=== PATIENT | female | born 1970 | race African-American/Black ===

== ENCOUNTER → 2017-07-19 | Outpatient (CLI) | payer BC | LOC: MMGTC 15:57 | PROVIDERS: ATTEND Family Medicine | DX: R31.9 Hematuria, unspecified (principal) | CPT/HCPCS: 87086 ==

== ENCOUNTER → 2017-08-01 | Outpatient (CLI) | payer BC | LOC: MMGSC 14:08 | PROVIDERS: ATTEND Family Medicine | DX: N39.0 Urinary tract infection, site not specified (principal) | CPT/HCPCS: 87086 ==

== ENCOUNTER → 2017-08-31 | Outpatient (CLI) | payer BC ==
[2017-08-31 19:49] LABS: Basophils % (A) 1 %; CH 30.3; CHCM 34.4; Eosinophils # (A) 0.1 k/uL (0-0.7); Eosinophils % (A) 1 %; HCT 42.4 % (34.0-46.0); HDW 2.94; HGB 14.7 gm/dL (11.4-16.0); Luc # (Auto) 0.13; Luc % (Auto) 2; Lymphocytes # (A) 2.4 k/uL (1.0-4.8); Lymphocytes % (A) 30 %; MCH 30.7 pg (25.0-35.0); MCHC 34.6 g/dL (31.0-37.0); MCV 88.7 fL (80.0-100.0); Mean Platelet Volume 8.3; Monocytes # (A) 0.3 k/uL (0-1.0); Monocytes % (A) 4 %; Neutrophils # (A) 4.8 k/uL (1.3-7.7); Neutrophils % (A) 62 %; RBC 4.77 m/uL (3.80-5.40); RDW 14.1 % (11.5-15.5); WBC 7.7 k/uL (3.8-10.6); WBC (Perox) 7.72
[2017-08-31 20:37] LABS: ALT 31 U/L (9-52); AST 21 U/L (14-36); Alkaline Phosphatase 69 U/L (38-126); Anion Gap 10 mmol/L; Blood Urea Nitrogen 10 mg/dL (7-17); Calcium 10.2 mg/dL (8.4-10.2); Carbon Dioxide 27 mmol/L (22-30); Chloride 104 mmol/L (98-107); Glucose 95 mg/dL (74-99); Non-African American GFR(MDRD) >60 (>60 ml/min/1.73 sqM); Potassium 4.2 mmol/L (3.5-5.1); Sodium 141 mmol/L (137-145); Total Bilirubin 0.6 mg/dL (0.2-1.3)
== END | disposition home or self-care (01) ==
LOC: MMGSC 16:25
PROVIDERS: ATTEND Family Medicine
DX: I10 Essential (primary) hypertension (principal)
CPT/HCPCS: 36415; 80053; 84439; 84443; 85025

== ENCOUNTER → 2021-01-05 | Outpatient (CLI) | payer BC | END | disposition home or self-care (01) | LOC: LABWHC1 16:32 | PROVIDERS: ATTEND Family Medicine | DX: Z20.822 Contact with and (suspected) exposure to COVID-19 (principal); R50.9 Fever, unspecified; M79.10 Myalgia, unspecified site; R53.83 Other fatigue | CPT/HCPCS: U0003; U0005 ==

== ENCOUNTER → 2021-02-15 | Outpatient (CLI) | payer BC | END | disposition home or self-care (01) | LOC: LABWHC1 15:52 | PROVIDERS: ATTEND Family Medicine | DX: J02.9 Acute pharyngitis, unspecified (principal); R59.9 Enlarged lymph nodes, unspecified ==

== ENCOUNTER → 2021-03-18 | Outpatient (CLI) | payer BC ==
--- NOTE | 2021-03-18 12:38 | FL ---
EXAMINATION TYPE: FL barium swallow DATE OF EXAM: 03/18/2021 CLINICAL HISTORY: 50-year-old female with dysphagia. Patient has a goiter for one month. TECHNIQUE: A double contrast esophagram is performed utilizing air and barium. A total of 60 second s of fluoroscopic time was utilized during procedure. COMPARISON: None FINDINGS: The esophagus shows normal motility and emptying into the stomach. There is a small sliding -type hiatal hernia. No evidence of esophageal stricture. No significant gastroesophageal reflux was seen during real time performance of this study. Valsalva maneuvers were also performed. No gastroeso phageal reflux was seen. Contrast flows to the stomach and proximal small bowel without delay. IMPRESSION: 1. No evidence of gastroesophageal reflux, spontaneous or with Valsalva maneuvers. 2. Small sliding-type hiatal hernia.
--- NOTE | 2021-03-18 14:08 | US ---
EXAMINATION TYPE: US thyroid st tissue head/neck DATE OF EXAM: 03/18/2021 COMPARISON: NONE CLINICAL HISTORY: E04.1 Thyroid Nodule, R13.10 Dysphagia. GLAND SIZE: Right Lobe: 6.4 x 3.6 x 3.2 cm Overall Parenchyma: heterogenous Left Lobe: 6.2 x 3.4 x 3.8 cm Overall Parenchyma: heterogeneous Isthmus Thickness: 0.9 cm NODULES RIGHT: # of nodules measured on right: 1 1. 3.0 X 3.1 x 2.5 cm, mid mid, solid or almost completely solid, hypoechoic nodule, which is talle r than wide, with smooth margins, without echogenic foci. Prior size: no previous LEFT: # of nodules measured on left: 1 1. 4.7 X 2.7 x 3.6 cm, mid mid, solid or almost completely solid, hypoechoic nodule, which is wider than tall, with smooth margins, without echogenic foci. Prior size: no previous ISTHMUS: # of nodules measured in the isthmus: 1 1. 3.3 X 2.1 x 2.7 cm solid or almost completely solid, hypoechoic nodule, which is wider than tall , with smooth margins, without echogenic foci. Prior size: no previous Bilateral neck scanned, no evidence of lymphadenopathy. Enlarged diffusely heterogeneous thyroid gland with multiple nodules. IMPRESSION: The thyroid gland parenchyma is diffusely enlarged and heterogeneous. Bilateral solid nodules are see n which are hypoechoic without echogenic foci. These are TI-RADS 4 nodules and are eligible for ultra sound-guided biopsy per criteria. 2017 ACR TI-RADS LEVEL: 4 *Highest TI-RADS level nodule reported
== END | disposition home or self-care (01) ==
LOC: RADUSWWP 09:18
PROVIDERS: ATTEND Otolaryngology
DX: K44.9 Diaphragmatic hernia without obstruction or gangrene (principal); E04.9 Nontoxic goiter, unspecified; E04.2 Nontoxic multinodular goiter
CPT/HCPCS: 74220; 76536

== ENCOUNTER 2021-03-24 13:01 | Day surgery (SDC) | payer BC ==
[2021-03-24] MEDS ORDERED: ALPRAZolam 0.5 MG TAB PO STA (13:27)
[2021-03-24 13:56] VITALS: BP 133/74; PULSE 74; RESP 18; TEMP 98.1
--- NOTE | 2021-03-24 14:52 | US ---
ULTRASOUND GUIDED FNA THYROID BIOPSY: CLINICAL HISTORY: Thyroid nodule FINDINGS: The procedure was explained to the patient. The risks, complications, benefits and alternatives were discussed and any questions were answered. Informed consent was obtained. Patient was placed supin e on the ultrasound table and prepped and draped in the usual sterile fashion. Utilizing a 25 gauge needle, five passes were made into the requested right, isthmus, and left thyroid nodule. Patient was stable throughout the procedure. Pathology is pending. All elements of maximal barrier technique were utilized. IMPRESSION: 1. Successful ultrasound guided FNA thyroid biopsy.
== END 2021-03-24 15:10 | disposition home or self-care (01) ==
LOC: RADPROMAIN 13:01
PROVIDERS: ATTEND Otolaryngology
DX: E04.1 Nontoxic single thyroid nodule (principal)
CPT/HCPCS: 10005; 10006; 88173; 88305

== ENCOUNTER 2021-06-22 06:41 | Observation (INO) | payer BC ==
[2021-06-16 09:39] VITALS: BMI 29.5
[~2021-06-22 06:41] MED LIST: ACETAMINOPHEN TAB 500 MG TAB PO PRN; DEXAMETHASONE SOD PHOSPHATE 4 MG/ML 1 ML VIAL IV ONE; HEPARIN SODIUM,PORCINE/PF 5,000 UNIT/0.5 ML SYRINGE SQ PRN; LACTATED RINGERS 1,000 ML IV SCH; ONDANSETRON 4 MG/2 ML VIAL IVP ONE; Pre Op ABX Message 1 EACH MISC MISCELLANE ONE; SCOPOLAMINE 1.5MG/72HR PATCH TRANSDERM ONE
[2021-06-22] MEDS ORDERED: MIDAZOLAM 2 MG/2 ML VIAL IV PRN (07:00)
[2021-06-22 07:24] LABS: Glucose,Whole Blood 204 mg/dL (75-99)
--- NOTE | 2021-06-22 10:20 | P.GSHP ---
History of Present Illness H&P Date: 06/22/21 Chief Complaint: Enlarged multinodular thyroid goiter This a 50-year-old female who's off a very large thyroid goiter. Patient has compressive symptoms her neck from her goiter. She presents today for subtotal thyroidectomy. Patient aware the risks surgery including injury to the recurrent laryngeal nerve, vocal hoarseness and injury to parathyroid gland. Past Medical History Past Medical History: Diabetes Mellitus, Hyperlipidemia, Hypertension Additional Past Medical History / Comment(s): goiter, has some dypshagia History of Any Multi-Drug Resistant Organisms: None Reported Past Surgical History: Hernia Repair, Hysterectomy, Tonsillectomy, Tubal Ligation Additional Past Surgical History / Comment(s): LEEP procedure Past Anesthesia/Blood Transfusion Reactions: No Reported Reaction Smoking Status: Never smoker - Past Family History Sister(s) Family Medical History: Cancer Additional Family Medical History / Comment(s): brain cancer Medications and Allergies Home Medications Medication Instructions Recorded Confirmed Type Cholecalciferol [Vitamin D3 (25 50 mcg PO DAILY 03/12/21 06/22/21 History Mcg = 1000 Iu)] Rosuvastatin [Crestor] 20 mg PO DAILY 03/12/21 06/16/21 History Valsartan/Hydrochlorothiazide 25 mg PO HS 03/12/21 06/16/21 History [Valsartan-Hctz 160-25 mg Tab] amLODIPine [Norvasc] 10 mg PO DAILY 03/12/21 06/16/21 History cloNIDine HCL [Catapres] 1 mg PO DAILY 03/12/21 06/16/21 History metFORMIN HCL [Glucophage] 500 mg PO BID 03/12/21 06/16/21 History Metoprolol Succinate (ER) [Toprol 50 mg PO HS 06/16/21 06/22/21 History Xl] Allergies Allergy/AdvReac Type Severity Reaction Status Date / Time Penicillins Allergy Rash/Hives Verified 06/22/21 07:08 Surgical - Exam Vital Signs Temp Pulse Resp BP Pulse Ox 97.4 F L 69 17 117/72 98 06/22/21 07:19 06/22/21 07:19 06/22/21 07:19 06/22/21 07:19 06/22/21 07:19 - General well developed, well nourished, no distress - Eyes PERRL - ENT normal pinna - Neck Enlarged thyroid gland with diffuse multinodular goiter. Gland appears to be very large. Results - Labs Abnormal Lab Results - Last 24 Hours (Table) 06/22/21 Range/Units 07:22 POC Glucose (mg/dL) 204 H (75-99) mg/dL Diabetes panel 06/22/21 Range/Units 07:24 Calcium 10.0 (8.4-10.2) mg/dL Calcium panel 06/22/21 Range/Units 07:24 Calcium 10.0 (8.4-10.2) mg/dL Pituitary panel 06/22/21 Range/Units 07:24 Calcium 10.0 (8.4-10.2) mg/dL Adrenal panel 06/22/21 Range/Units 07:24 Calcium 10.0 (8.4-10.2) mg/dL Assessment and Plan Assessment: Diffuse multinodular goiter. Patient will undergo subtotal thyroidectomy
[2021-06-22] MEDS ORDERED: ePHEDrine SULFATE/0.9% NACL/PF 50 MG/5 ML SYRINGE IV ONE (10:44)
[2021-06-22] MEDS ORDERED: PROPOFOL 10 MG/ML 20 ML VIAL IV ONE (10:44)
[2021-06-22] MEDS ORDERED: ROCURONIUM 10 MG/ML (5 ML VIAL) IV ONE (10:44)
[2021-06-22] MEDS ORDERED: GLYCOPYRROLATE 0.2 MG/ML 2 ML VIAL ONE (10:44)
[2021-06-22] MEDS ORDERED: SUCCINYLCHOLINE CHLORIDE 100 MG/5 ML SYR IV ONE (10:44)
[2021-06-22] MEDS ORDERED: SODIUM CHLORIDE 0.9% 100 ML BAG ONE (10:44)
[2021-06-22] MEDS ORDERED: MIDAZOLAM 2 MG/2 ML VIAL ONE (10:44)
[2021-06-22] MEDS ORDERED: fentaNYL (PF) 50 MCG/ML 2 ML AMP ONE (10:44)
[2021-06-22] MEDS ORDERED: ceFAZolin 1,000 MG VIAL ONE (10:44)
[2021-06-22] MEDS ORDERED: LIDOCAINE 1% INJ 10MG/ML (20 ML MDV) ONE (10:44)
[2021-06-22] MEDS ORDERED: LACTATED RINGERS 1,000 ML IV ONE ×2 (12:07→12:41)
[2021-06-22] MEDS ORDERED: NALOXONE 0.4 MG/ML 1 ML VIAL IV PRN (12:41)
--- NOTE | 2021-06-22 12:41 | P.OP ---
Date of Procedure: 06/22/21 Preoperative Diagnosis: Multinodular goiter Postoperative Diagnosis: Multinodular goiter Procedure(s) Performed: Subtotal thyroidectomy Anesthesia: FUAD Surgeon: David Cain Estimated Blood Loss (ml): 25 Pathology: other (Thyroid) Condition: stable Disposition: PACU Description of Procedure: The patient's placed on the operative table in supine position. She received general anesthesia. She was then placed in the beachchair position with her neck extended. Her neck was prepped and draped in sterile fashion. Standard Max incision was made approximately 2 cm above the sternal notch. Using left cautery subcutaneous tissue and platysma was divided. The strap muscles were divided midline. Thyroid gland was exposed. Gelpi retractors placed in the wound. Using Chong retractors the right thyroid gland exposed. The gland was rotated medially into the operative field. The superior thyroid vessels were ligated between 0 silk ties and divided. The lower thyroid vessels were tied with 2-0 silk ties and ligated. The middle thyroid vein was ligated with 3-0 silk ties. And ligated. Using Harmonic scissors dissection was used to dissect the thyroid off of the trachea. The recurrent laryngeal nerve was then preserved. The inferior parathyroid gland was visualized. The superior parathyroid gland could not be visualized. Next right thyroid gland was mobilized into the operative field. The superior vessels were ligated with 2-0 silk ties. The inferior vessels were ligated with 2 silk ties. The middle thyroid vein was ligated with 3-0 silk ties. Using the Harmonic scissors the thyroid gland was medically dissected off of the trachea. The left thyroid gland was tagged with a suture. The specimens of pathology. There was good hemostasis. There is no significant bleeding seen. The strap muscle reapproximated using 3-0 Vicryl suture. A PREET drain is placed in the thyroid bed and brought out through the middle of the incision prior to closing the strap muscles. Platysma closed 3-0 Vicryl. Skin was closed interrupted 3-0 Monocryl suture. Dermabond was applied. Patient top she will was sent to recovery room in stable condition.
[2021-06-22] MEDS ORDERED: ONDANSETRON 4 MG/2 ML VIAL ONE (12:48)
[2021-06-22] MEDS ORDERED: ONDANSETRON 4 MG/2 ML VIAL IVP ONE (12:51)
[2021-06-22] MEDS: HYDROmorphone 0.5 MG/0.5 ML SYRINGE IVP PRN ×3 (12:53→20:13)
[2021-06-22 13:01] LABS: Glucose,Whole Blood 167 mg/dL (75-99)
[2021-06-22] MEDS: CALCIUM CARBONATE 500 MG CHEWABLE PO SCH ×3 (14:48→20:12)
[2021-06-22] MEDS ORDERED: ACETAMINOPHEN IV (For NPO) 1,000 MG in EMPTY BAG 1 BAG IVPB ONE (15:20)
--- NOTE | 2021-06-22 15:56 | P.CONS ---
History of Present Illness - Reason for Consult Consult date: 06/22/21 irregular heart beat Requesting physician: David Cain - Chief Complaint difficulty swallowing - History of Present Illness Patient is a 50 yo AAF with a hx of goiter NT pressed TSH without formal diagnosis of hyperthyroidism and negative thyroid stimulating antibody, hypertension, dyslipidemia, and diabetes mellitus type 2 controlled with oral medications who presented to the hospital for elective thyroidectomy. We're consulted postoperatively secondary to concerns of irregular pulse. Initial EKG was done which demonstrated normal sinus rhythm. Patient seen and examined at bedside. She complains of neck pain and difficulty swallowing. She also feels slightly sleepy. She states that she came to the ER for dysphagia and difficulty swallowing when they found an enlarged thyroid. Since that time she has seen Dr. Fish and had biopsy done. She has also seen Dr. Guaman from endocrinology who plans on seeing her 6 weeks postoperatively. She has noted some weight loss of approximately 2-5 pounds, hair loss. She denies any changes in her skin, nails, diarrhea, palpitations. She denies any recent illness. She has not been on any thyroid suppression medications. Initial EKG demonstrated normal sinus rhythm at a rate of 88, NH 205, QRS 112, QTC 459. Pertinent positives and negatives as discussed in HPI, a complete review of systems was performed and all other systems are negative. General: non toxic, mild distress secondary to pain, appears at stated age Derm: warm, dry Head: atraumatic, normocephalic, symmetric Eyes: EOMI, no lid lag, anicteric sclera, pupils equal round reactive to light ENT: Nose and ears atraumatic, no thrush, no pharyngeal erythema Neck: PREET drain in a lace over anterior neck with dressings in place, no cervical lymphadenopathy Mouth: no lip lesion, mucus membranes moist Cardiovascular: Regular with grade 2, positive posterior tibial pulse bilateral, no edema, capillary refill less than 2 seconds Lungs: Decreased breath sounds bilateral, no ronchi, no rales, no wheeze, no accessory muscle use Abdominal: soft, nontender to palpation, no guarding, no appreciable organomegaly, normal bowel sounds Ext: no gross muscle atrophy, muscle strength muscle strength 5 out of 5 in all 4 extremities, no contractures Neuro: CN II-XI grossly intact, light touch intact all 4 extremities, finger to nose within normal limits, Psych: Alert, oriented, appropriate affect 50-year-old -Vincentian female status post thyroidectomy for multinodular goiter. Irregular heart rate -Telemetry -Check calcium level, magnesium, and potassium levels Hypertension, controlled -Resume home medications in a.m. if blood pressure stable Dyslipidemia -Statin therapy Diabetes mellitus type 2 -Hold metformin -Sliding-scale insulin -Postop outpatient follow-up with primary and endocrinology. Thank you for allowing us to participate in the care of this pleasant patient. Do not hesitate to contact us with questions. Someone can be reached from the [facility] hospitalist group all hours of the day at [phone] or via [email or web address]. Past Medical History Past Medical History: Diabetes Mellitus, Hyperlipidemia, Hypertension Additional Past Medical History / Comment(s): goiter, has some dypshagia History of Any Multi-Drug Resistant Organisms: None Reported Past Surgical History: Hernia Repair, Hysterectomy, Tonsillectomy, Tubal Ligation Additional Past Surgical History / Comment(s): LEEP procedure Past Anesthesia/Blood Transfusion Reactions: No Reported Reaction Past Psychological History: No Psychological Hx Reported Smoking Status: Never smoker Past Alcohol Use History: None Reported Past Drug Use History: None Reported - Past Family History Sister(s) Family Medical History: Cancer Additional Family Medical History / Comment(s): brain cancer Medications and Allergies Home Medications Medication Instructions Recorded Confirmed Type Cholecalciferol [Vitamin D3 (25 50 mcg PO DAILY 03/12/21 06/22/21 History Mcg = 1000 Iu)] Rosuvastatin [Crestor] 20 mg PO DAILY 03/12/21 06/16/21 History Valsartan/Hydrochlorothiazide 25 mg PO HS 03/12/21 06/16/21 History [Valsartan-Hctz 160-25 mg Tab] amLODIPine [Norvasc] 10 mg PO DAILY 03/12/21 06/16/21 History cloNIDine HCL [Catapres] 1 mg PO DAILY 03/12/21 06/16/21 History metFORMIN HCL [Glucophage] 500 mg PO BID 03/12/21 06/16/21 History Metoprolol Succinate (ER) [Toprol 50 mg PO HS 06/16/21 06/22/21 History Xl] Allergies Allergy/AdvReac Type Severity Reaction Status Date / Time Penicillins Allergy Rash/Hives Verified 06/22/21 14:35 Physical Exam Osteopathic Statement: *. No significant issues noted on an osteopathic structural exam other than those noted in the History and Physical/Consult. Vitals: Vital Signs Temp Pulse Resp BP Pulse Ox 06/22/21 13:25 98 16 140/82 98 06/22/21 13:10 100 16 142/80 98 06/22/21 12:55 98 16 148/88 99 06/22/21 12:40 97 16 138/67 100 06/22/21 12:28 97.8 F 101 H 16 142/88 100 06/22/21 07:19 97.4 F L 69 17 117/72 98 Intake and Output 06/22/21 06/22/21 06/22/21 06:59 14:59 22:59 Intake Total 1400 Output Total 725 400 Balance 675 -400 Intake: IV 1400 Output: Urine 700 400 Estimated Blood Loss 25 Other: Voiding Method Toilet Weight 66.1 kg Results Labs: Abnormal Lab Results - Last 24 Hours (Table) 06/22/21 06/22/21 Range/Units 07:22 13:00 POC Glucose (mg/dL) 204 H 167 H (75-99) mg/dL
[2021-06-22 16:13] LABS: Calcium 9.7 mg/dL (8.4-10.2); Magnesium 1.5 mg/dL (1.6-2.3); Potassium 2.8 mmol/L (3.5-5.1)
[2021-06-22] MEDS ORDERED: POTASSIUM CHLORIDE ER 20 MEQ TAB.ER PO STA (16:49)
[2021-06-22] MEDS: ONDANSETRON 4 MG/2 ML VIAL IVP PRN (17:04)
[2021-06-22 17:13] LABS: Glucose,Whole Blood 205 mg/dL (75-99)
[2021-06-22] MEDS: INSULIN ASPART (NovoLOG) 100 UNIT/ML VIAL SQ SCH (17:19)
[2021-06-22] MEDS: POTASSIUM CHLORIDE 10 MEQ in WATER FOR INJECTION 1 100ML.BAG IVPB SCH ×4 (17:27→21:31)
[2021-06-22 20:58] LABS: Glucose,Whole Blood 189 mg/dL (75-99)
[2021-06-22] MEDS ORDERED: hydroCHLOROthiazide 25 MG TAB PO SCH (21:00)
[2021-06-22] MEDS: VALSARTAN 160 MG TAB PO SCH (22:27)
[2021-06-22] MEDS: HYDROcodone/APAP 5-325MG 1 EACH TAB PO PRN (22:31)
[2021-06-22 23:25] LABS: African American GFR (CKD) 67 (>60 ml/min/1.73 sqM); Anion Gap 8 mmol/L; Blood Urea Nitrogen 11 mg/dL (7-17); Calcium 10.4 mg/dL (8.4-10.2); Carbon Dioxide 32 mmol/L (22-30); Chloride 93 mmol/L (98-107); Glucose 177 mg/dL (74-99); Non-African American GFR(CKD) 58 (>60 ml/min/1.73 sqM); Potassium 3.5 mmol/L (3.5-5.1); Sodium 133 mmol/L (137-145)
[2021-06-23] MEDS: HYDROmorphone 0.5 MG/0.5 ML SYRINGE IVP PRN ×4 (03:18→20:02)
[2021-06-23] MEDS: POTASSIUM CHLORIDE ER 20 MEQ TAB.ER PO SCH ×3 (04:58→08:04)
[2021-06-23 05:34] LABS: African American GFR (CKD) 61 (>60 ml/min/1.73 sqM); Anion Gap 9 mmol/L; Blood Urea Nitrogen 10 mg/dL (7-17); Calcium 11.5 mg/dL (8.4-10.2); Carbon Dioxide 33 mmol/L (22-30); Chloride 94 mmol/L (98-107); Glucose 159 mg/dL (74-99); Non-African American GFR(CKD) 53 (>60 ml/min/1.73 sqM); Potassium 3.4 mmol/L (3.5-5.1); Sodium 136 mmol/L (137-145)
[2021-06-23 07:37] LABS: Glucose,Whole Blood 160 mg/dL (75-99)
[2021-06-23] MEDS: ATORVASTATIN 40 MG TAB PO SCH (08:04)
[2021-06-23] MEDS: CALCIUM CARBONATE 500 MG CHEWABLE PO SCH ×4 (08:04→21:39)
[2021-06-23] MEDS: INSULIN ASPART (NovoLOG) 100 UNIT/ML VIAL SQ SCH ×3 (08:04→17:40)
[2021-06-23] MEDS: ENOXAPARIN 40 MG/0.4 ML SYRINGE SQ SCH (08:04)
[2021-06-23] MEDS ORDERED: cloNIDine HCL 0.1 MG TAB PO SCH (09:00)
[2021-06-23] MEDS: amLODIPine 10 MG TAB PO SCH (09:19)
[2021-06-23] MEDS: cloNIDine HCL 0.1 MG TAB PO SCH (09:20)
[2021-06-23] MEDS: LACTATED RINGERS 1,000 ML IV SCH ×2 (09:22→17:31)
[2021-06-23 09:29] LABS: African American GFR (CKD) 57 (>60 ml/min/1.73 sqM); Anion Gap 9 mmol/L; Blood Urea Nitrogen 10 mg/dL (7-17); Calcium 11.1 mg/dL (8.4-10.2); Carbon Dioxide 35 mmol/L (22-30); Chloride 93 mmol/L (98-107); Glucose 169 mg/dL (74-99); Magnesium 1.6 mg/dL (1.6-2.3); Non-African American GFR(CKD) 49 (>60 ml/min/1.73 sqM); Sodium 137 mmol/L (137-145)
[2021-06-23] MEDS ORDERED: POTASSIUM BICARBONATE/CIT AC 20 MEQ TABLET.EFF PO STA (11:10)
[2021-06-23 12:11] LABS: Glucose,Whole Blood 213 mg/dL (75-99)
[2021-06-23] MEDS ORDERED: POTASSIUM BICARBONATE/CIT AC 20 MEQ TABLET.EFF PO ONE (13:00)
[2021-06-23] MEDS: ONDANSETRON 4 MG/2 ML VIAL IVP PRN (13:41)
--- NOTE | 2021-06-23 14:31 | P.PN ---
Subjective Progress Note Date: 06/23/21 CHIEF COMPLAINT: Multinodular goiter HISTORY OF PRESENT ILLNESS: Patient is status post subtotal thyroidectomy. Postop day #1. She does report some difficulty swallowing. Denies any hoarseness. She is complaining of nausea and pain. Afebrile. Sodium 137 potassium 3.0 creatinine 1.27 magnesium 1.6 Patient seen and examined with Dr. Cain PHYSICAL EXAM: VITAL SIGNS: Reviewed. GENERAL: Well-developed in no acute distress. HEENT: No sclera icterus. Extraocular movements grossly intact. Moist buccal mucosa. Head is atraumatic, normocephalic. ABDOMEN: Soft. Nondistended. Nontender. NEUROLOGIC: Alert and oriented. Cranial nerves II through XII grossly intact. ASSESSMENT: 1. Multinodular goiter status post subtotal thyroidectomy 2. Hypokalemia and hypomagnesemia PLAN: -Replace magnesium -Potassium being replaced -Continue pain medication as needed -Continue antiemetics -Downgraded diet to full liquids -Anticipate discharge tomorrow on full liquid diet Physician Spanish Professor note has been reviewed by physician. Signing provider agrees with the documented findings, assessment, and plan of care. Objective - Vital Signs Vital signs: Vital Signs Temp 97.9 F 06/23/21 08:33 Pulse 65 06/23/21 08:33 Resp 18 06/23/21 08:33 BP 152/85 06/23/21 08:33 Pulse Ox 97 06/23/21 08:33 Intake & Output 06/22/21 06/23/21 06/23/21 18:59 06:59 18:59 Intake Total 1400 Output Total 1825 75 90 Balance -425 -75 -90 Weight 66.1 kg Intake: IV 1400 Output: Drainage 75 90 Right Neck 75 90 Urine 1800 Estimated Blood Loss 25 Other: Voiding Method Toilet # Voids 1 5 - Labs CBC & Chem 7: 06/23/21 08:43 Labs: Abnormal Lab Results - Last 24 Hours (Table) 06/22/21 06/22/21 06/22/21 Range/Units 15:47 17:12 20:58 Sodium (137-145) mmol/L Potassium 2.8 L (3.5-5.1) mmol/L Chloride 95 L (98-107) mmol/L Carbon Dioxide 32 H (22-30) mmol/L Creatinine 1.08 H (0.52-1.04) mg/dL Glucose 206 H (74-99) mg/dL POC Glucose (mg/dL) 205 H 189 H (75-99) mg/dL Calcium (8.4-10.2) mg/dL Magnesium 1.5 L (1.6-2.3) mg/dL 06/22/21 06/23/21 06/23/21 Range/Units 22:50 04:39 07:36 Sodium 133 L 136 L (137-145) mmol/L Potassium 3.4 L (3.5-5.1) mmol/L Chloride 93 L 94 L (98-107) mmol/L Carbon Dioxide 32 H 33 H (22-30) mmol/L Creatinine 1.10 H 1.20 H (0.52-1.04) mg/dL Glucose 177 H 159 H (74-99) mg/dL POC Glucose (mg/dL) 160 H (75-99) mg/dL Calcium 10.4 H 11.5 H (8.4-10.2) mg/dL Magnesium (1.6-2.3) mg/dL 06/23/21 06/23/21 Range/Units 08:43 12:10 Sodium (137-145) mmol/L Potassium 3.0 L (3.5-5.1) mmol/L Chloride 93 L (98-107) mmol/L Carbon Dioxide 35 H (22-30) mmol/L Creatinine 1.27 H (0.52-1.04) mg/dL Glucose 169 H (74-99) mg/dL POC Glucose (mg/dL) 213 H (75-99) mg/dL Calcium 11.1 H (8.4-10.2) mg/dL Magnesium (1.6-2.3) mg/dL
--- NOTE | 2021-06-23 14:43 | P.PN ---
Subjective Progress Note Date: 06/23/21 (delayed charting seen at 0855) Principal diagnosis: dysphagia Patient is a 50 yo AAF with a hx of goiter NT pressed TSH without formal diagnosis of hyperthyroidism and negative thyroid stimulating antibody, hypertension, dyslipidemia, and diabetes mellitus type 2 controlled with oral medications who presented to the hospital for elective thyroidectomy. We're consulted postoperatively secondary to concerns of irregular pulse. Initial EKG was done which demonstrated normal sinus rhythm. She was found have electrolyte disturbances of hypo-candidemia and hypomagnesemia. Those are placed and she was monitored. Telemetry showed normal sinus rhythm. Patient seen and examined at bedside. She reports that she is still having significant neck pain and dysphagia. Medications are helping. She denies any nausea, vomiting, or chest pain. General: non toxic, no distress, appears at stated age Derm: warm, dry Head: atraumatic, normocephalic, symmetric Eyes: EOMI, no lid lag, anicteric sclera, incision covered on neck with drain in place with serosanguineous fluid Mouth: no lip lesion, mucus membranes moist Cardiovascular: S1S2 reg, no murmur, positive posterior tibial pulse bilateral, Lungs: Decreased breath sounds bilateral, no rhonchi, no rales , no accessory muscle use Abdominal: soft, nontender to palpation, no guarding, no appreciable organomegaly Ext: no gross muscle atrophy, no edema, no contractures Neuro: CN II-XI grossly intact, no focal neuro deficits Psych: Alert, oriented, appropriate affect 50-year-old -Beninese female status post thyroidectomy for multinodular goiter. Outpatient TSH was significantly suppressed with normal free T4. She is following with Dr. Michelle Guaman and is due to follow with her 6 postoperatively. She was not told that she would need any post operative thyroid supplementation. Hypokalemia -Replace and recheck Hypomagnesemia, improved Hypertension, controlled -conitnue current medications 0 follow BP Dyslipidemia -Statin therapy Diabetes mellitus type 2 -Hold metformin -Sliding-scale insulin -Postop outpatient follow-up with primary and endocrinology. Active Medications Hydrocodone Bitart/Acetaminophen (Hydrocodone/Apap 5-325mg 1 Each Tab) 2 each PO Q6HR PRN PRN Reason: Moderate to Severe Pain Stop: 07/22/21 12:42 Last Admin: 06/22/21 22:31 Dose: 2 each Documented by: Amlodipine Besylate (Amlodipine 10 Mg Tab) 10 mg PO DAILY [facility] Last Admin: 06/23/21 09:19 Dose: 10 mg Documented by: Atorvastatin Calcium (Atorvastatin 40 Mg Tab) 40 mg PO DAILY [facility] Last Admin: 06/23/21 08:04 Dose: 40 mg Documented by: Calcium Carbonate/Glycine (Calcium Carbonate 500 Mg Chewable) 1,000 mg PO QID [facility] Stop: 07/22/21 13:01 Last Admin: 06/23/21 13:02 Dose: 1,000 mg Documented by: Clonidine (Clonidine Hcl 0.1 Mg Tab) 0.1 mg PO DAILY [facility] Last Admin: 06/23/21 09:20 Dose: 0.1 mg Documented by: Enoxaparin Sodium (Enoxaparin 40 Mg/0.4 Ml Syringe) 40 mg SQ DAILY [facility] Stop: 07/23/21 09:01 Last Admin: 06/23/21 08:04 Dose: 40 mg Documented by: Hydromorphone HCl (Hydromorphone 0.5 Mg/0.5 Ml Syringe) 0.5 mg IVP Q3HR PRN PRN Reason: Moderate to Severe Pain Stop: 07/22/21 12:42 Last Admin: 06/23/21 11:44 Dose: 0.5 mg Documented by: Lactated Ringer's (Lactated Ringers) 1,000 mls @ 125 mls/hr IV .Q8H [facility] Last Admin: 06/23/21 09:22 Dose: 125 mls/hr Documented by: Magnesium Sulfate/Dextrose 1 (gm/ IV Solution) 100 mls @ 100 mls/hr IVPB Q1H [facility] Stop: 06/23/21 16:29 Insulin Aspart (Insulin Aspart (Novolog) 100 Unit/Ml Vial) 0 unit SQ AC-TID [facility]; Protocol Last Admin: 06/23/21 13:02 Dose: 3 unit Documented by: Metoprolol Succinate (Metoprolol Succinate (Er) 50 Mg Tab.Er.24h) 50 mg PO HS [facility] Naloxone HCl (Naloxone 0.4 Mg/Ml 1 Ml Vial) 0.2 mg IV Q2M PRN PRN Reason: Opioid Reversal Stop: 07/22/21 12:42 Ondansetron HCl (Ondansetron 4 Mg/2 Ml Vial) 4 mg IVP Q6HR PRN PRN Reason: Nausea And Vomiting Stop: 07/22/21 12:42 Last Admin: 06/23/21 13:41 Dose: 4 mg Documented by: Valsartan (Valsartan 160 Mg Tab) 160 mg PO HS [facility] Last Admin: 06/22/21 22:27 Dose: 160 mg Documented by: Objective - Vital Signs Vital signs: Vital Signs Temp 97.9 F 06/23/21 08:33 Pulse 65 06/23/21 08:33 Resp 18 06/23/21 08:33 BP 152/85 06/23/21 08:33 Pulse Ox 97 06/23/21 08:33 Intake & Output 06/22/21 06/23/21 06/23/21 18:59 06:59 18:59 Intake Total 1400 Output Total 1825 75 90 Balance -425 -75 -90 Weight 66.1 kg Intake: IV 1400 Output: Drainage 75 90 Right Neck 75 90 Urine 1800 Estimated Blood Loss 25 Other: Voiding Method Toilet # Voids 1 5 - Labs CBC & Chem 7: 06/23/21 08:43 Labs: Abnormal Lab Results - Last 24 Hours (Table) 06/22/21 06/22/21 06/22/21 Range/Units 15:47 17:12 20:58 Sodium (137-145) mmol/L Potassium 2.8 L (3.5-5.1) mmol/L Chloride 95 L (98-107) mmol/L Carbon Dioxide 32 H (22-30) mmol/L Creatinine 1.08 H (0.52-1.04) mg/dL Glucose 206 H (74-99) mg/dL POC Glucose (mg/dL) 205 H 189 H (75-99) mg/dL Calcium (8.4-10.2) mg/dL Magnesium 1.5 L (1.6-2.3) mg/dL 06/22/21 06/23/21 06/23/21 Range/Units 22:50 04:39 07:36 Sodium 133 L 136 L (137-145) mmol/L Potassium 3.4 L (3.5-5.1) mmol/L Chloride 93 L 94 L (98-107) mmol/L Carbon Dioxide 32 H 33 H (22-30) mmol/L Creatinine 1.10 H 1.20 H (0.52-1.04) mg/dL Glucose 177 H 159 H (74-99) mg/dL POC Glucose (mg/dL) 160 H (75-99) mg/dL Calcium 10.4 H 11.5 H (8.4-10.2) mg/dL Magnesium (1.6-2.3) mg/dL 06/23/21 06/23/21 Range/Units 08:43 12:10 Sodium (137-145) mmol/L Potassium 3.0 L (3.5-5.1) mmol/L Chloride 93 L (98-107) mmol/L Carbon Dioxide 35 H (22-30) mmol/L Creatinine 1.27 H (0.52-1.04) mg/dL Glucose 169 H (74-99) mg/dL POC Glucose (mg/dL) 213 H (75-99) mg/dL Calcium 11.1 H (8.4-10.2) mg/dL Magnesium (1.6-2.3) mg/dL
[2021-06-23] MEDS: MAGNESIUM SULFATE-D5W PMX 1 GM in DEXTROSE/WATER 1 100ML.BAG IVPB SCH ×2 (16:04→20:07)
[2021-06-23 17:05] LABS: Glucose,Whole Blood 190 mg/dL (75-99)
[2021-06-23] MEDS ORDERED: METOPROLOL SUCCINATE (ER) 50 MG TAB.ER.24H PO SCH (21:00)
[2021-06-23] MEDS: VALSARTAN 160 MG TAB PO SCH (21:39)
[2021-06-23 21:53] LABS: Glucose,Whole Blood 158 mg/dL (75-99)
[2021-06-24 03:21] VITALS: RESP 16
[2021-06-24] MEDS: HYDROmorphone 0.5 MG/0.5 ML SYRINGE IVP PRN ×2 (05:38→11:49)
[2021-06-24 07:40] LABS: Glucose,Whole Blood 237 mg/dL (75-99)
[2021-06-24 08:19] VITALS: TEMP 97.8
[2021-06-24] MEDS: INSULIN ASPART (NovoLOG) 100 UNIT/ML VIAL SQ SCH ×2 (08:35→12:20)
[2021-06-24] MEDS: ATORVASTATIN 40 MG TAB PO SCH (08:35)
[2021-06-24] MEDS: ENOXAPARIN 40 MG/0.4 ML SYRINGE SQ SCH (08:36)
[2021-06-24] MEDS: HYDROcodone/APAP 5-325MG 1 EACH TAB PO PRN (08:45)
[2021-06-24 09:39] LABS: Basophils # (A) 0.04 X 10*3/uL (0.00-0.10); Basophils % (A) 0.5 %; Eosinophils % (A) 1.2 %; HGB 12.2 g/dL (12.0-15.0); Lymphocytes # (A) 3.26 X 10*3/uL (0.90-5.00); Lymphocytes % (A) 40.1 %; MCHC 34.9 g/dL (32.0-37.0); MCV 89.1 fL (80.0-97.0); Mean Platelet Volume 9.7 fL (9.5-12.2); Monocytes # (A) 0.36 X 10*3/uL (0.20-1.00); Monocytes % (A) 4.4 %; Neutrophils # (A) 4.32 X 10*3/uL (1.80-7.70); Neutrophils % (A) 53.3 %; Platelet Count 225 X 10*3/uL (140-440); RBC 3.93 X 10*6/uL (4.10-5.20); RDW 13.8 % (11.5-14.5); WBC 8.12 X 10*3/uL (4.50-10.00)
[2021-06-24 11:03] LABS: African American GFR (CKD) 60.6 (60.0-200.0); Anion Gap 8.4 mmol/L (4.00-12.00); BUN/Creat Ratio 8.33 Ratio (12.00-20.00); Calcium 10.7 mg/dL (8.7-10.3); Carbon Dioxide 35.6 mmol/L (21.6-31.8); Non-African American GFR(CKD) 52.3 (60.0-200.0); Potassium 3.8 mmol/L (3.5-5.5)
[2021-06-24] MEDS: amLODIPine 10 MG TAB PO SCH (11:38)
[2021-06-24] MEDS: cloNIDine HCL 0.1 MG TAB PO SCH (11:38)
[2021-06-24 11:57] LABS: Glucose,Whole Blood 123 mg/dL (75-99)
--- NOTE | 2021-06-24 13:32 | P.DS ---
Providers Date of admission: 06/23/21 04:01 Expected date of discharge: 06/24/21 Attending physician: David Cain Consults: 06/22/21 12:41 Consult Physician Routine Consulting Provider: Joyce Joseph Consult Reason/Comments: med manag Do you want consulting provider notified?: Yes Primary care physician: Afua Knutson [facility] Hospital Course: Discharge diagnosis 1. Multinodular goiter status post subtotal thyroidectomy 2. Hypokalemia Hospital course This a 50-year-old female who's off a very large thyroid goiter. Patient has compressive symptoms her neck from her goiter. She is status post subtotal thyroidectomy. Patient tolerated surgery well. She is tolerating diet. Her pain is controlled. She has been up and ambulating. She's afebrile. Her electrolytes were replaced yesterday which included potassium and magnesium. These have been corrected. She is stable for discharge. Please refer to chart for any further details. Physician Cigarette Tipper note has been reviewed by physician. Signing provider agrees with the documented findings, assessment, and plan of care. Patient Condition at Discharge: Stable Plan - Discharge Summary Discharge Rx Participant: Yes New Discharge Prescriptions: New Docusate [Colace] 100 mg PO BID #30 cap HYDROcodone/APAP 5-325MG [[place] 5-325] 1 tab PO Q6HR PRN 3 Days #12 tab PRN Reason: Pain Potassium Chloride ER [K-Dur 10] 10 meq PO DAILY #10 tab No Action metFORMIN HCL [Glucophage] 500 mg PO BID Rosuvastatin [Crestor] 20 mg PO DAILY cloNIDine HCL [Catapres] 0.1 mg PO DAILY Cholecalciferol [Vitamin D3 (25 Mcg = 1000 Iu)] 50 mcg PO DAILY Metoprolol Succinate (ER) [Toprol Xl] 50 mg PO HS Valsartan/Hydrochlorothiazide [Valsartan-Hctz 160-25 mg Tab] 25 mg PO HS amLODIPine [Norvasc] 10 mg PO DAILY Discharge Medication List Cholecalciferol [Vitamin D3 (25 Mcg = 1000 Iu)] 50 mcg PO DAILY 03/12/21 [History] Rosuvastatin [Crestor] 20 mg PO DAILY 03/12/21 [History] Valsartan/Hydrochlorothiazide [Valsartan-Hctz 160-25 mg Tab] 25 mg PO HS 03/12/21 [History] amLODIPine [Norvasc] 10 mg PO DAILY 03/12/21 [History] cloNIDine HCL [Catapres] 0.1 mg PO DAILY 03/12/21 [History] metFORMIN HCL [Glucophage] 500 mg PO BID 03/12/21 [History] Metoprolol Succinate (ER) [Toprol Xl] 50 mg PO HS 06/16/21 [History] Docusate [Colace] 100 mg PO BID #30 cap 06/24/21 [Rx] HYDROcodone/APAP 5-325MG [[place] 5-325] 1 tab PO Q6HR PRN 3 Days #12 tab 06/24/21 [Rx] Potassium Chloride ER [K-Dur 10] 10 meq PO DAILY #10 tab 06/24/21 [Rx] Follow up Appointment(s)/Referral(s): Afua Knutson NPC [Primary Care Provider] - 1-2 Days David Cain MD [STAFF PHYSICIAN] - 1 Week Activity/Diet/Wound Care/Special Instructions: Medical service to complete discharge med rec 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 No soaking or tub baths for 2 weeks Very light activity until you are reevaluated at your follow up appointment with your surgeon Stay on Full liquid diet and advance as tolerated Discharge Disposition: HOME SELF-CARE
[2021-06-24] MEDS: LACTATED RINGERS 1,000 ML IV SCH ×2 (14:53)
[2021-06-24 15:14] VITALS: BP 97/59; PULSE 63
--- NOTE | 2021-06-24 17:49 | P.PN ---
Subjective Progress Note Date: 06/24/21 (delayed charting seen at 0845) Principal diagnosis: dysphagia Patient is a 50 yo AAF with a hx of goiter NT pressed TSH without formal diagnosis of hyperthyroidism and negative thyroid stimulating antibody, hypertension, dyslipidemia, and diabetes mellitus type 2 controlled with oral medications who presented to the hospital for elective thyroidectomy. We're consulted postoperatively secondary to concerns of irregular pulse. Initial EKG was done which demonstrated normal sinus rhythm. She was found have electrolyte disturbances of hypo-candidemia and hypomagnesemia. Those are placed and she was monitored. Telemetry showed normal sinus rhythm. Patient seen and examined at bedside. Able to eat today, no chest pain, no nuasea. some numbness in neck. no chest pain General: non toxic, no distress, appears at stated age Derm: warm, dry Head: atraumatic, normocephalic, symmetric Eyes: EOMI, no lid lag, anicteric sclera, incision covered on neck with drain in place with serosanguineous fluid Mouth: no lip lesion, mucus membranes moist Cardiovascular: S1S2 reg, no murmur, positive posterior tibial pulse bilateral, Lungs: Decreased breath sounds bilateral, no rhonchi, no rales , no accessory muscle use Abdominal: soft, nontender to palpation, no guarding, no appreciable organomegaly Ext: no gross muscle atrophy, no edema, no contractures Neuro: CN II-XI grossly intact, no focal neuro deficits Psych: Alert, oriented, appropriate affect 50-year-old -[place] female status post thyroidectomy for multinodular goiter. Outpatient TSH was significantly suppressed with normal free T4. She is following with Dr. Michelle Guaman and is due to follow with her 6 postoperatively. She was not told that she would need any post operative thyroid supplementation. Hypokalemia, resolved Hypomagnesemia, improved Hypertension, controlled -conitnue current medications - follow BP Dyslipidemia -Statin therapy Diabetes mellitus type 2 -Hold metformin -Sliding-scale insulin -Postop outpatient follow-up with primary and endocrinology. - Med recs addressed - medically optimized for discharge. Objective - Vital Signs Vital signs: Vital Signs Temp 97.8 F 06/24/21 15:13 Pulse 63 06/24/21 15:13 Resp 16 06/24/21 15:13 BP 97/59 06/24/21 15:13 Pulse Ox 93 L 06/24/21 15:13 Intake & Output 06/23/21 06/24/21 06/24/21 18:59 06:59 18:59 Output Total 90 40 Balance -90 -40 Output: Drainage 90 40 Right Neck 90 40 Other: Voiding Method Toilet Toilet Toilet # Voids 3 2 4 - Labs CBC & Chem 7: 06/24/21 05:17 06/24/21 05:17 Labs: Abnormal Lab Results - Last 24 Hours (Table) 06/23/21 06/24/21 06/24/21 Range/Units 21:51 05:17 05:17 RBC 3.93 L (4.10-5.20) X 10*6/uL Hct 35.0 L (37.2-46.3) % Carbon Dioxide 35.6 H (21.6-31.8) mmol/L Est GFR (CKD-EPI)NonAf 52.3 L (60.0-200.0) BUN/Creatinine Ratio 8.33 L (12.00-20.00) Ratio Glucose 141 H (70-110) mg/dL POC Glucose (mg/dL) 158 H (75-99) mg/dL Calcium 10.7 H (8.7-10.3) mg/dL 06/24/21 06/24/21 Range/Units 07:39 11:56 RBC (4.10-5.20) X 10*6/uL Hct (37.2-46.3) % Carbon Dioxide (21.6-31.8) mmol/L Est GFR (CKD-EPI)NonAf (60.0-200.0) BUN/Creatinine Ratio (12.00-20.00) Ratio Glucose (70-110) mg/dL POC Glucose (mg/dL) 237 H 123 H (75-99) mg/dL Calcium (8.7-10.3) mg/dL
== END 2021-06-24 16:02 | disposition home or self-care (01) ==
LOC: OR 06:41 → 6PED 12:52 → 6NMEDSUR 16:42 → OR 06-23 04:01
PROVIDERS: ADMIT Surgery; ATTEND Surgery
DX: E04.2 Nontoxic multinodular goiter (principal); E87.6 Hypokalemia; E11.9 Type 2 diabetes mellitus without complications; E78.5 Hyperlipidemia, unspecified; E83.42 Hypomagnesemia; I10 Essential (primary) hypertension; I49.9 Cardiac arrhythmia, unspecified; Z79.84 Long term (current) use of oral hypoglycemic drugs; Z79.899 Other long term (current) drug therapy; Z88.0 Allergy status to penicillin; Z98.51 Tubal ligation status; Z98.890 Other specified postprocedural states; Z90.710 Acquired absence of both cervix and uterus; Z80.8 Family history of malignant neoplasm of other organs or systems
CPT/HCPCS: 60220; 93005; 80048 ×3; 82310; 83735 ×3; 85025; 88307; G0378 ×2; J2250; J2405 ×2; J0690; J2001; J1650 ×2; J3010; J3475; J3480; J0131; J0330; J2704; J1170 ×3; J1644

== ENCOUNTER → 2024-10-14 | Outpatient (CLI) | payer BC ==
[2024-10-14 15:34] VITALS: BP 171/92; PULSE 80; RESP 16; TEMP 98.6
--- NOTE | 2024-10-14 16:10 | P.SLEEP ---
History of Present Illness DATE: 10/14/2024 CONSULTATION/NEW PATIENT EVALUATION HISTORY OF PRESENT ILLNESS/SLEEP-WAKE EVALUATION: 53-year-old lady had been evaluated in the sleep center for possible obstructive sleep apnea hypopnea syndrome. SLEEP SCHEDULE: Usually sleep schedule from 11 3012 midnight until 8 AM. FALLING ASLEEP: Patient has difficulties with falling asleep, has TV set in bedroom. DURING SLEEP: Patient usually sleeps on the side position and wakes up from sleep up to 4 times with nocturia. Positive history of sweating. No history of hypnogogical hallucinations, sleep paralysis, or cataplexy. DURING THE DAY/WAKE STATE: During the day patient has difficulties to pay attention, falling asleep, has episodes of irritability, anxiety, sexual dysfunction. [place] sleepiness scale is 2. Patient usually does not take naps. PAST MEDICAL HISTORY: Hypertension, hypothyroidism, hyperlipidemia, carpal tunnel syndrome. PAST SURGICAL HISTORY: Thyroidectomy for goiter. MEDICATIONS: Please see below. SOCIAL HISTORY: Please see below. FAMILY HISTORY: Please see below. REVIEW OF SYSTEMS: Multiple awakenings from sleep with sweating and nocturia. No fevers. No double vision. No recent chest pain. No shortness of breath. No abdominal pain. No bleeding episodes. No blood in urine. No seizure episodes. PHYSICAL EXAMINATION: GENERAL: A pleasant patient without any distress. VITAL SIGNS: Please see below, weight 152.2 pounds, BMI 28.7. HEENT: PERRLA, EOMI. Evaluation of oropharynx showed tongue protrudes midline, l ow position of soft palate Mallampati 4. NECK: Supple. No JVD. Thyroid is not palpable. 14-3/4 inches in circumference. LUNGS: Clear to percussion and to auscultation. Good air exchange. No wheezing or rhonchi. HEART: S1, S2 regular. No murmurs, gallops or rubs. ABDOMEN: Soft and nontender. Bowel sounds are present. No organomegaly appreciated. EXTREMITIES: No clubbing or cyanosis. OPERATOR COMMAND SUPPORT SYSTEMS: Awake, alert, and oriented x3. Cranial nerves 2 to 7 intact. There is no fasciculation or atrophy noted. No focal deficits observed. ASSESSMENT: 1. Multiple awakenings from sleep, nocturia, extremely low position of soft palate Mallampati 4 history of obstructive sleep apnea diagnosed in another institution 2009. Obstructive sleep apnea hypopnea syndrome. 2. Hypertension. 3. Hypothyroidism. 4. Status post thyroidectomy for goiter. 5 history of heart failure. 6 . Insomnia. PLAN: 1. Polysomnography for evaluation of patient's breathing during sleep. 2. Following plan after reading sleep study. 3. Preferable position during sleep on the side. 4. No driving if patient feels any sleepiness. Patient is aware of civil and criminal liability for unsafe driving. 5. Sleep hygiene with regular sleep time for at least 7.5-8 hours. 6. Watching weight. Thank you very much for referring this patient for consultation. Sincerely, Otto Warren MD, PhD, FAASM. Diplomat of [place] [employer], Sleep Medicine Board by [place] [employer] [place] [employer] [facility] [place] cc: Afua Knutson LEGAL ADMINISTRATIVE SECRETARY-C Past Medical History Past Medical History: Diabetes Mellitus, Hyperlipidemia, Hypertension, Thyroid Disorder Additional Past Medical History / Comment(s): goiter, has some dypshagia, thyroid removed, hx of kidney and heart failure when had thyoid removed, insomnia, sleep study in 2009 - positive for júnior per pt - never got a machine (in [facility]), migraines History of Any Multi-Drug Resistant Organisms: None Reported Past Surgical History: Hernia Repair, Hysterectomy, Tonsillectomy, Tubal Ligation Additional Past Surgical History / Comment(s): LEEP procedure, umbilical hernia Past Anesthesia/Blood Transfusion Reactions: No Reported Reaction Additional Psychological History / Comment(s): Was taking anxiety medicine but not taking anything now. Smoking Status: Never smoker Past Alcohol Use History: None Reported, Rare Past Drug Use History: None Reported - Past Family History Sister(s) Family Medical History: Cancer, Hypertension Additional Family Medical History / Comment(s): brain cancer (cousin - stroke), both parents had heart problems - mom - CHF, dad passed [place], Medications and Allergies Home Medications Medication Instructions Recorded Confirmed Type Cholecalciferol [Vitamin D3 (25 50 mcg PO DAILY 03/12/21 06/22/21 History Mcg = 1000 Iu)] Rosuvastatin [Crestor] 20 mg PO DAILY 03/12/21 06/16/21 History Valsartan/Hydrochlorothiazide 25 mg PO HS 03/12/21 06/16/21 History [Valsartan-Hctz 160-25 mg Tab] amLODIPine [Norvasc] 10 mg PO DAILY 03/12/21 06/16/21 History cloNIDine HCL [Catapres] 0.1 mg PO DAILY 03/12/21 06/23/21 History metFORMIN HCL [Glucophage] 500 mg PO BID 03/12/21 06/16/21 History Metoprolol Succinate (ER) [Toprol 50 mg PO HS 06/16/21 06/22/21 History XL] Docusate [Colace] 100 mg PO BID #30 cap 06/24/21 Rx HYDROcodone/APAP 5-325MG [[place] 1 tab PO Q6HR PRN 3 Days #12 tab 06/24/21 Rx 5-325] Potassium Chloride ER [K-Dur 10] 10 meq PO DAILY #10 tab 06/24/21 Rx Allergies Allergy/AdvReac Type Severity Reaction Status Date / Time Penicillins Allergy Rash/Hives Verified 06/22/21 14:35 Physical Exam Vitals: Vital Signs Temp Pulse Resp BP Pulse Ox 10/14/24 15:33 98.6 F 80 16 171/92 94 L Sleep Note - Sleep Data ESS Total: 2 - Sleep Note Sleep Note: Temperature: 98.6 F Pulse Rate: 80 Respiratory Rate: 16 Blood Pressure: 171/92 SpO2: 94 Height: Weight: BMI: Neck Circumference: 14.7
== END ==
LOC: 3 N SLEEP 14:27
PROVIDERS: ATTEND Internal Medicine
DX: G47.33 Obstructive sleep apnea (adult) (pediatric) (principal); R35.1 Nocturia; E03.9 Hypothyroidism, unspecified; G47.00 Insomnia, unspecified; I11.0 Hypertensive heart disease with heart failure; I50.9 Heart failure, unspecified; Z98.890 Other specified postprocedural states; Z88.0 Allergy status to penicillin; Z79.899 Other long term (current) drug therapy
CPT/HCPCS: 99212

== ENCOUNTER 2024-11-12 19:52 | Outpatient (CLI) | payer BC ==
--- NOTE | 2024-11-13 12:30 | P.PCN ---
Description of Procedure: POLYSOMNOGRAPHY REPORT PROCEDURE(S)/DATE(S): Polysomnography 11/12/2024 CLINICAL: Patient has been seen in the sleep center for evaluation of obstructive sleep apnea-hypopnea syndrome. Please see my consultation. Sleep study has been done for evaluation of patient breathing during the sleep. PROCEDURE: The standard montage for clinical polysomnography included the electroencephalogram, the electrooculogram, the mentalis surface electromyography and Lead II cardiography. The respiratory battery consisted of measurements of nasal/buccal air flow, pressure transducer measurements from nose, thoracic and/or abdominal effort and intercostal surface electromyography. Video monitoring has been done to check for any parasomnia events. Nocturnal oxyhemoglobin saturations were obtained by finger oximetry. Step-florentino titration with positive airway pressure was utilized to control the respiratory events, if necessary. RESULTS: During the diagnostic sleep study sleep efficiency was decreased to 73.6%. Latency to sleep onset was significantly prolonged to 88.0 min. Sleep architecture showed stage NI was short 4.4%, Delta sleep was extremely short 0.7%, REM sleep was short 11.0%. Respiratory channel showed 0 obstructive apneas, 0 mixed apneas, 0 central apneas, 10 hypopneas with lowest oxygen level 81%. Oxygen was below or equal 88% for 1.1 minutes, total apnea hypopnea index was 2.0. Heart rate was in the range between 65 and 76, average 72. EMG showed 1.0 periodic limb movements per hour with 1.0 micro-arousals per hour. IMPRESSIONS: 1. No significant respiratory abnormalities have been documented during the sleep study. 2. No significant periodic limb movements have been documented. 3. Long sleep latency and low sleep efficiency may indicate insomnia versus first night adaptation response. Please see other impressions from consultation PLAN: 1. I will see patient for follow-up visit to explain results of the test and recommendations. 2. Watching weight. 3. Sleep hygiene with regular time in bed for at least 7-1/2 hours. 4. No driving if feeling sleepiness. Thank you very much for allowing me to participate in the management of your patient. Sincerely, Otto Warren MD, PhD, FAASM. Diplomat of [place] [employer], Sleep Medicine Board by [place] [employer] Medical Apparatus Model [employer] [facility] [place] cc: Afua Knutson
== END 2024-11-13 06:10 | disposition home or self-care (01) ==
LOC: 3 N SLEEP 19:52
PROVIDERS: ATTEND Internal Medicine
DX: G47.8 Other sleep disorders (principal); Z88.0 Allergy status to penicillin
CPT/HCPCS: 95810